=== PATIENT | male | born 1930 | race Caucasian/White ===

== ENCOUNTER 2017-01-26 12:14 | Inpatient (IN) ==
[2017-01-26] MEDS ORDERED: ONDANSETRON 4 MG/2 ML VIAL IV PRN ×2 (12:44→15:29)
[2017-01-26] MEDS ORDERED: ALBUTEROL 2.5 MG/3 ML NEB RESP TX STA (12:44)
[2017-01-26] MEDS ORDERED: MAGNESIUM SULF RIDER 2 GM in PREMIX 1 EACH IV STA (12:44)
--- NOTE | 2017-01-26 12:47 | EKG Report ---
Stationary ECG Study [facility] ER Test Date: 01/26/2017 12:24:06 PM Pat Name: JIM DUPONT Department: Room: Gender: M Quarter Inspector: Aureliano Beal : 1930 Requested by: Boaz Santoro Order Number: [id number] Reading MD: WILL GARCIA Intervals [place] Rate: 101 P: 99 MA: 206 QRS: 95 QRSD: 177 T: 86 QT: 391 QTc: 449 Interpretive Statements SINUS TACHYCARDIA INTRAVENTRICULAR CONDUCTION ABNORMALITY Electronically Signed On 01-27-17 09:27:43 CDT by WILL GARCIA [email or web address]
--- NOTE | 2017-01-26 12:48 | Emergency Department Note ---
Arrival - Arrival Chief Complaint: Shortness of Breath Stated Complaint: SOB ED Nursing Triage Note: Pt c/o SOB x 2 days. Denies CP. Mode of Arrival: Wheelchair Limitations: No Limitations Source: Patient, Significant other, RN Notes Reviewed Time Seen by Provider: 01/26/17 12:40 - History of Present Illness HPI Narrative: Patient is an 86-year-old white male who has a 2 day history of shortness of breath cough and wheezing. He denies any chest pain. There is no history of fever or chills. Patient does have a history of coronary artery disease. Dyspnea is worse with exertion and with supine positioning. Patient is followed by Dr. Arreaga and Dr. Lara. Onset (ago): day(s) (2) Consistency: constant Severity: moderate Allergies/Adverse Reactions: Allergies Allergy/AdvReac Type Severity Reaction Status Date / Time lactulose [From Chronulac] Allergy Unknown/Unable Verified 12/18/16 09:27 to obtain Home Medications: Home Medications Medication Instructions Recorded Confirmed Type Cilostazol 100 mg PO BID 11/30/15 01/26/17 History Clopidogrel [Plavix] 75 mg PO DAILY 11/30/15 01/26/17 History Digoxin Tab [Lanoxin Tab] 0.125 mg PO DAILY 11/30/15 01/26/17 History Gabapentin Cap/Tab [Neurontin 600 mg PO TID 11/30/15 01/26/17 History Cap/Tab] Levothyroxine Tab [Synthroid Tab] 100 mcg PO QAM 11/30/15 01/26/17 History Pravastatin [Pravachol] 20 mg PO BEDTIME 11/30/15 01/26/17 History Spironolactone [Aldactone] 25 mg PO DAILY #30 tablet 12/02/15 01/26/17 Rx Aspirin EC Tab 81 mg PO DAILY 12/18/16 01/26/17 History Atropine Sulfate [Atropine 1% Oph 1 drop RIGHT EYE DAILY 12/18/16 01/26/17 History Soln] Tramadol HCl [Tramadol Tab] 50 mg PO Q6H PRN 12/18/16 01/26/17 History prednisoLONE acetate [PrednisoLONE 1 drop RIGHT EYE DAILY 12/18/16 01/26/17 History Acetate 1% Oph Susp] Amiodarone Tab [Cordarone Tab] 200 mg PO DAILY #30 tablet 12/25/16 01/26/17 Rx Carvedilol [Coreg] 3.125 mg PO BID #60 tablet 12/25/16 01/26/17 Rx Furosemide Tab [Lasix Tab] 80 mg PO DAILY #30 tablet 12/25/16 01/26/17 Rx Gabapentin 300 mg PO BEDTIME PRN 01/26/17 01/26/17 History Tamsulosin [Flomax] 0.4 mg PO BEDTIME 01/26/17 01/26/17 History Review of System - Review of System 12 point system: reviewed and no additional remarkable complaints except as stated - Review of System Constitutional: Absent: chills, fever Respiratory: Present: as per HPI, cough, respiratory distress, wheezing Gastrointestinal: Absent: nausea, vomiting Medical,Surgical,& Family Hx - Medical History Cardio: History of: CHF (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 on 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 developer), CAD, Hypertension, Valvular Heart Disease Endocrine: History of: Dyslipidemia Musculoskeletal: History of: Musculoskeletal Problems (arthritis) Other: History of: Cancer (prostate ca with radiation), Miscellaneous Medical Problems - Surgical History Cardiac Surgeries: Sugical HX of: Femoral-Popliteal Bypass Graft (1999), Cardiac Catheterization, Cardiac Surgery Reproductive Surgeries: Surgical HX of;: Prostate Surgery - Family History Family History: Reports;: Family Cancer (brother- throat,), Family Diabetes (son , brother), Family Heart Disease, Family Hypertension (son), Family Stroke ( mother) - Social History Smoking Status: Never smoker Lives With:: Spouse Functional capacity: independent ambulation Exam Vital Signs: Vital Signs Temperature 96.9 F L 01/26/17 12:38 Pulse Rate 87 01/26/17 13:13 Respiratory Rate 18 01/26/17 13:13 Blood Pressure 108/69 01/26/17 12:38 O2 Sat by Pulse Oximetry 96 01/26/17 13:13 GENERAL: This is a chronically and acutely ill-appearing white male in no apparent distress. VITAL SIGNS: Reviewed HEENT: Head is atraumatic and normocephalic. Pupils are equal round react to light. Extraocular movements are intact. Oropharynx is benign with moist mucous membranes. NECK: Neck is soft and supple without tenderness. There are no masses. There is no lymphadenopathy. LUNGS: Bibasilar rales are present. Chest rises symmetrically. There is no chest wall tenderness. CV: Heart is regular rate and rhythm without murmurs rubs or gallops. ABDOMEN: Abdomen is soft, nontender to palpation. There are no abdominal abnormal masses palpated. There is no organomegaly. Bowel sounds are present and active. SKIN: Skin is warm and dry. No rash. Slightly pale. EXTREMITIES: Patient has full range of motion without tenderness. There is trace pedal edema. NEUROLOGIC: Awake alert and oriented to person and situation. Cranial nerves II through XII are grossly intact. Motor is 5 over 5 in all extremities bilaterally. Course Course Narrative: Patient was given nonrebreathing facemask while in the emergency department along with Lasix 80 mg IV. - Consultations Consultation #1: Discussed with hospitalist. Patient will be admitted to their service. Time: 13:56 Procedures - ABG Interpretation ABG Interpretation 1 Interpretation: respiratory alkalosis, other (Acute respiratory failure) Results - Labs CBC & BMP: 01/26/17 12:33 01/26/17 12:33 Lab Results: I have reviewed the patients labs Labs: Laboratory Tests 01/26/17 01/26/17 01/26/17 12:33 12:33 13:00 ABG pH 7.503 H ABG pCO2 26.2 L ABG pO2 51.1 L ABG HCO3 22.9 ABG Total CO2 18.7 L ABG O2 Saturation 86.1 L ABG Base Excess -1.5 Troponin I 0.084 H B-Natriuretic Peptide 1408 H - EKG EKG results: interpreted by ERMD - Impressions EKG: Sinus tachycardia with first-degree AV block with rate of 100, left bundle branch block, no further interpretation possible. - Diagnostic Findings Procedure: Chest x-ray: image reviewed by me (Increased pulmonary markings bilaterally, old median sternotomy) Disposition Clinical Impression: Dyspnea, Pulmonary edema Case discussed with: patient, patient's family Disposition: Still a Patient Condition: Stable Time of Disposition: 13:58
[2017-01-26] MEDS ORDERED: MAGNESIUM SULF RIDER 50 ML IV ONE (12:49)
[2017-01-26 12:51] LABS: Basophils % 0.2 % (0.0-0.8); Eosinophils % 0.1 % (0.00-10.9); Hematocrit 31.4 VOL% (42.0-52.0); Hemoglobin 10.2 GM/DL (14.0-18.0); Immature Granulocytes % 0.6 %; Immature Granulocytes Absolute 0.07 #; Lymphocytes # 0.9 10*3/uL (1.4-4.0); Lymphocytes % 8.6 % (21.2-54.2); Mean Corpuscular HGB Conc 32.5 GM/DL (32-36); Mean Corpuscular Hemoglobin 32 PG (27-34); Mean Corpuscular Volume 97.2 FL (87-102); Mean Platelet Volume 10.6 FL (9.6-12.0); Monocytes # 0.9 10*3/uL (0.11-0.8); Monocytes % 7.9 % (1.7-12.7); Neutrophils % 82.6 % (38.7-73.9); Platelet Count 218 T/CUMM (130-400); Red Blood Count 3.23 MC/CUMM (3.8-5.5); White Blood Count 10.9 T/CUMM (4-12)
--- NOTE | 2017-01-26 13:02 | XRay Report ---
Referring Physician: Boaz Sargent Exam: XR chest 1V portable Date: January 26, 2017 at 12:47 PM Reason: Shortness of breath Comparison: Chest one view portable December 24, 2016 Findings: The cardiac silhouette is again enlarged, and the patient is status post sternotomy. There are patchy opacities throughout both lungs. This could represent pulmonary edema or pneumonia. No pneumothorax is identified, but there is likely mild bilateral pleural fluid. The osseous structures appear stable. Impression: Significant increased opacification of both lungs. PROCEDURE INTERPRETED AT [facility] DEPARTMENT OF RADIOLOGY Final Report Signed by: Dr. Marylou Whitman
[2017-01-26 13:06] LABS: INR 1.8; PT Patient Result 20.1 SECS; Partial Thromboplastin Time 29.6 SECS (0-40)
[2017-01-26 13:16] LABS: ABG Base Excess -1.5 MMOL/L (-2.5-2.5); ABG HCO3 22.9 MMOL/L (20-26); ABG Oxygen Saturation 86.1 % (95-100); ABG PCO2 26.2 MM HG (35-48); ABG PH 7.503 (7.35-7.45); ABG PO2 51.1 MM HG (80-95); ABG TCO2 18.7 MMOL/L (23-27)
[2017-01-26 13:21] LABS: Albumin 2.9 G/DL (3.4-5.0); Bilirubin,Total 1.1 MG/DL (0.2-1.0); Calcium 8.2 MG/DL (8.5-10.1); Magnesium 2.3 MG/DL (1.8-2.4); Osmolality,Calculated 277.4 MOS/KG (273-304); Potassium 4.5 MMOL/L (3.5-5.1); Total Protein 6.6 G/DL (6.4-8.3)
[2017-01-26 13:22] LABS: Troponin I Only 0.084 NG/ML (0.00-0.045)
[2017-01-26] MEDS ORDERED: FUROSEMIDE 40 MG/4 ML VIAL IV STA (13:54)
[2017-01-26] MEDS ORDERED: FUROSEMIDE 100 MG/10 ML VIAL ONE (13:57)
--- NOTE | 2017-01-26 14:37 | Hospitalist History & Physical ---
Assessment and Plan - Time spent with patient Time spent with patient: Greater than 30 minutes (1) Severe aortic stenosis Status: Chronic Assessment and plan: Mr. Floyd is an 86-year-old white male with multiple medical problems including severe cardiomyopathy with severe aortic stenosis admitted by Dr. Marti with increasing shortness of breath due to heart failure. Patient will be admitted to CCU on nonrebreather, aggressively diuresed, and consult cardiology. Patient does have chronic kidney disease we will have to watch his creatinine while being diuresed. We will restart his medicines for now and start him on sliding scale insulin as well for his diabetes. This is all been discussed with Dr. Marti. Further recommendations to follow Current Visit: No (2) Ischemic cardiomyopathy Status: Chronic Current Visit: No (3) Acute on chronic systolic (congestive) heart failure Status: Acute Current Visit: No (4) Coronary artery disease Status: Chronic Current Visit: No (5) History of coronary artery bypass graft Status: Chronic Current Visit: No (6) Hyperlipidemia Status: Chronic Current Visit: No (7) Non-STEMI (non-ST elevated myocardial infarction) Status: Acute Current Visit: No (8) Hypertension Status: Chronic Current Visit: No (9) Chronic renal insufficiency, stage II (mild) Status: Chronic Current Visit: No (10) Pulmonary edema Status: Acute Current Visit: No History of Present Illness Chief complaint: SOB History of present illness: Mr. Floyd is a 86 year old male with history of severe cardiomyopathy, severe aortic stenosis, hypertension, hyperlipidemia, and diabetes presenting to the ED with 3-4 day history of increasing shortness of breath. Patient states his grandkids have been sick and he thought he was coming down with a cold. Patient states he could not catch his breath even at rest. Patient denies headache, syncope, chest pain, abdominal pain, diarrhea, constipation, or lower extremity edema. Patient had 2 recent admissions in November by cardiology with worsening severe shortness of breath with orthopnea and PND. According to Dr. Lara's records patient is reluctant to do any sort of invasive management. He does seem to respond to conservative treatment on his admissions. Patient's chest x-ray is showing bilateral pleural fluid versus bilateral pneumonia. His white count is normal and he is afebrile. His BNP is elevated at 1408, and his PO2 is low at 51. Upon exam patient is tachypneic and on nonrebreather mask, he is already received 80 mg of Lasix. After discussion with ED physician Dr. Sargent and hospitalist Dr. Marti, patient will be admitted to CCU. Home Medications Medication Instructions Recorded Confirmed Type Cilostazol 100 mg PO BID 11/30/15 01/26/17 History Clopidogrel [Plavix] 75 mg PO DAILY 11/30/15 01/26/17 History Digoxin Tab [Lanoxin Tab] 0.125 mg PO DAILY 11/30/15 01/26/17 History Gabapentin Cap/Tab [Neurontin 600 mg PO TID 11/30/15 01/26/17 History Cap/Tab] Levothyroxine Tab [Synthroid Tab] 100 mcg PO QAM 11/30/15 01/26/17 History Pravastatin [Pravachol] 20 mg PO BEDTIME 11/30/15 01/26/17 History Spironolactone [Aldactone] 25 mg PO DAILY #30 tablet 12/02/15 01/26/17 Rx Aspirin EC Tab 81 mg PO DAILY 12/18/16 01/26/17 History Atropine Sulfate [Atropine 1% Oph 1 drop RIGHT EYE DAILY 12/18/16 01/26/17 History Soln] Tramadol HCl [Tramadol Tab] 50 mg PO Q6H PRN 12/18/16 01/26/17 History prednisoLONE acetate [PrednisoLONE 1 drop RIGHT EYE DAILY 12/18/16 01/26/17 History Acetate 1% Oph Susp] Amiodarone Tab [Cordarone Tab] 200 mg PO DAILY #30 tablet 12/25/16 01/26/17 Rx Carvedilol [Coreg] 3.125 mg PO BID #60 tablet 12/25/16 01/26/17 Rx Furosemide Tab [Lasix Tab] 80 mg PO DAILY #30 tablet 12/25/16 01/26/17 Rx Gabapentin 300 mg PO BEDTIME PRN 01/26/17 01/26/17 History Tamsulosin [Flomax] 0.4 mg PO BEDTIME 01/26/17 01/26/17 History Allergies Allergy/AdvReac Type Severity Reaction Status Date / Time lactulose [From Chronulac] Allergy Unknown/Unable Verified 12/18/16 09:27 to obtain Medical,Surgical,& Family Hx - Medical History Cardio: History of: CHF (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), CAD, Hypertension, Valvular Heart Disease Endocrine: History of: Dyslipidemia Musculoskeletal: History of: Musculoskeletal Problems (arthritis) Other: History of: Cancer (prostate ca with radiation), Miscellaneous Medical Problems - Surgical History Cardiac Surgeries: Sugical HX of: Femoral-Popliteal Bypass Graft (1999), Cardiac Catheterization, Cardiac Surgery Reproductive Surgeries: Surgical HX of;: Prostate Surgery - Family History Family History: Reports;: Family Cancer (brother- throat,), Family Diabetes (son , brother), Family Heart Disease, Family Hypertension (son), Family Stroke ( mother) - Social History Smoking Status: Never smoker Frequency of Alcohol Use: None Type of Drug Use: None Marital Status: Lives With:: Spouse Functional capacity: independent ambulation Review of systems: A complete 10 system review of systems was obtained and pertinent positives and negatives per HPI Exam - Constitutional Vitals: Period Temp Pulse Resp BP Sys/Castañeda Pulse Ox Last 24 Hr 96.9 F-96.9 F 84-100 17-24 108-108/69-69 86-96 Exam: Constitutional System: Moderate distress. No tremulousness. Head: Normocephalic, atraumatic. Ears, Nose and Throat System: No evidence of Otitis or Mastoiditis. No epistaxis or discharge Eyes System: Pupils equal, round, and reactive. Extraocular muscles intact. Neck: Supple, without adenopathy, No jugular venous distention. No thyromegaly, neck mass, or prior surgery apparent. Respiratory System: Chest coarse with left greater than right to auscultation. Cardiovascular System: Heart with regular rate and rhythm. 2/6 murmur. GI System: Abdomen soft, nontender. Normo active bowel sounds present. Musculoskeletal System: limbs with mild pedal edema. Full distal pulses. Neurological System: No discernable sensory deficit. No aphasia Psychiatric System: Conversation is rational Results - Labs CBC & BMP: 01/26/17 12:33 01/26/17 12:33 Lab Results: I have reviewed the past 24 hour labs - Diagnostic Findings Procedure: Chest x-ray: report reviewed by me (Bilateral pleural effusions)
[2017-01-26] MEDS ORDERED: ACETAMINOPHEN 325 MG TABLET PO PRN (15:29)
[2017-01-26] MEDS ORDERED: MAGNESIUM SULF RIDER 2 GM in PREMIX 1 EACH IV PRN (15:29)
[2017-01-26] MEDS ORDERED: GLUCAGON 1 MG VIAL IM PRN (15:29)
[2017-01-26] MEDS ORDERED: MAGNESIUM SULF RIDER 4 GM in PREMIX 1 EACH IV PRN (15:29)
[2017-01-26] MEDS ORDERED: MORPHINE 2 MG/1 ML SYRINGE IV PRN (15:29)
[2017-01-26] MEDS ORDERED: GABAPENTIN 300 MG CAPSULE PO PRN (15:29)
[2017-01-26] MEDS ORDERED: POTASSIUM CHLORIDE RIDER 10 MEQ in PREMIX 1 EACH IV PRN (15:29)
[2017-01-26] MEDS ORDERED: DEXTROSE 50% 25 GM/50 ML VIAL IV PRN (15:29)
[2017-01-26] MEDS ORDERED: DOCUSATE SODIUM 100 MG CAPSULE PO PRN (15:29)
[2017-01-26] MEDS ORDERED: guaiFENesin/DM ER 600-30 MG TABLET PO PRN (15:29)
[2017-01-26] MEDS ORDERED: diphenhydrAMINE CAP 25 MG CAPSULE PO PRN (15:29)
[2017-01-26] MEDS ORDERED: PNEUMOCOCCAL VACCINE (13 VALENT) 0.5 ML SYRINGE IM ONE (16:13)
[2017-01-26 16:16] LABS: Apearance,Urine CLEAR (Clear); Bacteria,Urine Occasional /HPF (Few); Bilirubin,Urine Negative (Negative); Blood, Urine Small mg/dL (Negative); Glucose,Urine (UA) Negative (Negative); Ketones,Urine Negative (Negative); Nitrite,Urine Negative (Negative); Protein,Urine Negative; RBC,Urine 1 /HPF (0-4); Urine Color Straw (Yellow); Urine Specific Gravity 1.004 (1.001-1.035); Urine Urobilinogen < 2.0 EU/DL (0.2-1.0)
[2017-01-26] MEDS: INSULIN LISPRO 100 UNIT/ML SUBCUT SCH ×2 (17:08→20:11)
[2017-01-26] MEDS: prednisoLONE ACETATE 1% OPH SUSP 5 ML BOTTLE RIGHT EYE SCH (17:18)
[2017-01-26] MEDS: ATROPINE 1 % OPH SOLN 5 ML BOTTLE RIGHT EYE SCH (17:18)
[2017-01-26] MEDS: MEROPENEM 1,000 MG in SODIUM CHLORIDE 0.9% 100 ML IV SCH (17:18)
[2017-01-26] MEDS: CILOSTAZOL 100 MG TABLET PO SCH ×2 (17:19→20:09)
[2017-01-26] MEDS: DIGOXIN 0.125 MG TABLET PO SCH (17:20)
[2017-01-26] MEDS: GABAPENTIN 300 MG CAPSULE PO SCH ×2 (17:20→20:09)
[2017-01-26] MEDS: SPIRONOLACTONE 25 MG TABLET PO SCH (17:20)
[2017-01-26] MEDS: PANTOPRAZOLE 40 MG TABLET PO SCH (17:20)
[2017-01-26] MEDS: CARVEDILOL 3.125 MG TABLET PO SCH (17:20)
[2017-01-26] MEDS: CLOPIDOGREL 75 MG TABLET PO SCH (17:20)
[2017-01-26] MEDS: ASPIRIN EC 81 MG TABLET PO SCH (17:20)
[2017-01-26] MEDS: AMIODARONE 200 MG TABLET PO SCH (17:21)
[2017-01-26] MEDS: FUROSEMIDE 40 MG/4 ML VIAL IV SCH (17:21)
[2017-01-26 17:41] LABS: INR 1.7; PT Patient Result 18.8 SECS
[2017-01-26] MEDS ORDERED: VANCOMYCIN INJ 2,000 MG in SODIUM CHLORIDE 0.9% 500 ML IV ONE (18:00)
--- NOTE | 2017-01-26 19:22 | Ultrasound Report ---
US right upper quadrant Indication: CHF, elevated . Comparison: none. Technique: Multiple longitudinal and transverse real-time sonographic images of the right upper quadrant of the abdomen are obtained. Findings: The liver measures 17 cm and demonstrates normal echogenicity without focal abnormality. Hypoechoic lesion within the anterior aspect of the right lobe measures 0.55 cm and is not definitively evaluated but appears to demonstrate increased through transmission and therefore is favored to represent a cyst or hemangioma. Hepatic veins are dilated. Multiple mobile stones are noted within the gallbladder lumen. Gallbladder wall thickness is within normal limits. There is no focal pericholecystic fluid. The sonographic Bauman's sign is negative. The common duct measures 0.44 cm in diameter and there is no evidence of intrahepatic ductal dilation. Right kidney measures 10 cm craniocaudal and appears within normal limits. Small right pleural effusion is incidentally imaged. The visualized portion of the pancreas appears unremarkable. There is no ascites. IMPRESSION: Cholelithiasis with no sonographic evidence of acute cholecystitis. Ultrasound images were captured and stored. PROCEDURE INTERPRETED AT [facility] DEPARTMENT OF RADIOLOGY Final Report Signed by: Tom Barrera
[2017-01-26] MEDS ORDERED: PRAVASTATIN 20 MG TABLET PO SCH (21:00)
[2017-01-26] MEDS ORDERED: ENOXAPARIN 30 MG/0.3 ML SYRINGE SUBCUT SCH (21:00)
[2017-01-26] MEDS ORDERED: TAMSULOSIN 0.4 MG CAPSULE PO SCH (21:00)
[2017-01-27] MEDS: MEROPENEM 1,000 MG in SODIUM CHLORIDE 0.9% 100 ML IV SCH (02:13)
[2017-01-27 05:16] LABS: Basophils % 0.4 % (0.0-0.8); Eosinophils # 0.1 10*3/uL (0.0-0.87); Eosinophils % 0.7 % (0.00-10.9); Hematocrit 30.6 VOL% (42.0-52.0); Immature Granulocytes % 0.6 %; Immature Granulocytes Absolute 0.06 #; Lymphocytes # 0.9 10*3/uL (1.4-4.0); Lymphocytes % 8.4 % (21.2-54.2); Mean Corpuscular HGB Conc 32.7 GM/DL (32-36); Mean Corpuscular Hemoglobin 31 PG (27-34); Mean Corpuscular Volume 95.9 FL (87-102); Monocytes # 0.9 10*3/uL (0.11-0.8); Monocytes % 8.2 % (1.7-12.7); Neutrophils # 8.7 10*3/uL (1.4-7.4); Neutrophils % 81.7 % (38.7-73.9); Platelet Count 230 T/CUMM (130-400); Red Blood Count 3.19 MC/CUMM (3.8-5.5); Red Cell Distribution Width 15.1 % (9.3-17.3); White Blood Count 10.7 T/CUMM (4-12)
[2017-01-27 05:45] LABS: Albumin 2.5 G/DL (3.4-5.0); Bilirubin,Direct 0.3 MG/DL (0.0-0.20); Bilirubin,Total 1.3 MG/DL (0.2-1.0); Total Protein 6.1 G/DL (6.4-8.3)
[2017-01-27 05:49] LABS: Albumin 2.6 G/DL (3.4-5.0); Bilirubin,Total 1.2 MG/DL (0.2-1.0); Magnesium 2.4 MG/DL (1.8-2.4)
[2017-01-27 05:50] LABS: Osmolality,Calculated 275.2 MOS/KG (273-304); Potassium 3.9 MMOL/L (3.5-5.1)
[2017-01-27] MEDS ORDERED: LEVOTHYROXINE 100 MCG TABLET PO SCH (07:00)
--- NOTE | 2017-01-27 07:33 | EKG Report ---
Stationary ECG Study [facility] Test Date: 01/27/2017 7:28:37 AM Pat Name: JIM DUPONT Department: Room: 123 Gender: M Doll Wig Maker: : 1930 Requested by: Taylor Walls Order Number: [id number] Reading MD: CODY CANTU Intervals [place] Rate: 97 P: 61 NH: 186 QRS: 97 QRSD: 178 T: 55 QT: 407 QTc: 461 Interpretive Statements SINUS RHYTHM MODERATE RIGHT AXIS DEVIATION LEFT BUNDLE BRANCH BLOCK Electronically Signed On 01-27-17 16:20:41 CDT by CODY CANTU [email or web address]
--- NOTE | 2017-01-27 07:44 | XRay Report ---
Referring Physician: Taylor Walls Exam: XR chest 1V portable Date: January 27, 2017 at 3:16 AM Reason: Shortness of breath Comparison: Chest one view portable January 26, 2017 Findings: The cardiac silhouette is again enlarged, and the patient is status post sternotomy. There are patchy opacities throughout both lungs. This could represent pulmonary edema or pneumonia. No pneumothorax is identified, but there may be mild bilateral pleural fluid. The osseous structures appear stable. Impression: There has been no significant change. PROCEDURE INTERPRETED AT [facility] DEPARTMENT OF RADIOLOGY Final Report Signed by: Dr. Marylou Whitman
[2017-01-27] MEDS: INSULIN LISPRO 100 UNIT/ML SUBCUT SCH ×2 (08:18→11:48)
[2017-01-27] MEDS: FUROSEMIDE 40 MG/4 ML VIAL IV SCH (08:18)
[2017-01-27] MEDS: CARVEDILOL 3.125 MG TABLET PO SCH (08:18)
[2017-01-27] MEDS: ASPIRIN EC 81 MG TABLET PO SCH (08:19)
[2017-01-27] MEDS: ATROPINE 1 % OPH SOLN 5 ML BOTTLE RIGHT EYE SCH (08:19)
[2017-01-27] MEDS: SPIRONOLACTONE 25 MG TABLET PO SCH (08:19)
[2017-01-27] MEDS: AMIODARONE 200 MG TABLET PO SCH (08:19)
[2017-01-27] MEDS: CILOSTAZOL 100 MG TABLET PO SCH (08:20)
[2017-01-27] MEDS: prednisoLONE ACETATE 1% OPH SUSP 5 ML BOTTLE RIGHT EYE SCH (08:20)
[2017-01-27] MEDS: GABAPENTIN 300 MG CAPSULE PO SCH (08:20)
[2017-01-27] MEDS: PANTOPRAZOLE 40 MG TABLET PO SCH (08:20)
[2017-01-27] MEDS: CLOPIDOGREL 75 MG TABLET PO SCH (08:23)
[2017-01-27] MEDS ORDERED: FUROSEMIDE 20 MG/2 ML VIAL ONE (08:26)
[2017-01-27] MEDS ORDERED: FUROSEMIDE 40 MG/4 ML VIAL IV ONE (09:00)
--- NOTE | 2017-01-27 09:24 | Discharge Summary ---
Hospital Course - Hospital Course Hospital Course: Mr Floyd came with recurrent hypoxic resp failure due to CHF and critical Aortic stenosis. He has agreed with Dr Lara's recommendation that he be transferred to [place] to have AV repair. He is more comfortable today after diuresis overnight. He is now on 6L NC with O2 sat of 100%. He becomes short of breath with activity. On his last hospitalization he was also treated for pneumonia. I have started him on antibiotics pending culture results though clinically his picture is more consistent with heart failure. He is afebrile, rare cough, responded to diuretics. Dr Lara has discussed it with the gis mapping technician there who has accepted the transfer today. He will be discharged to that hospital today. Dr Lara and his team are talking to his family. - Time spent with patient Time with patient DS: Greater than 30 minutes (coordination of care, discussion with patient, medicine reconciliation, documentation took 34 minutes) Diagnosis - Discharge Diagnosis (1) Severe aortic stenosis Status: Chronic (2) Ischemic cardiomyopathy Status: Chronic (3) Acute on chronic systolic (congestive) heart failure Status: Acute (4) Pulmonary edema Status: Acute Specialty Discharge - Follow Up or Referrals Follow up with: Josh Lara MD [Physician] - Discharge Plan - Discharge Data Disposition: Disch/Xfer-[facility] Hos Condition at Discharge: Guarded Discharge Diet: heart healthy - Discharge Medications New Dextrose 50% [D50] 25 gm IV PRN PRN #0 vial PRN Reason: Hypoglycemia with IV access Docusate Sodium Cap [Colace Cap] 100 mg PO BID PRN #0 capsule PRN Reason: Constipation Furosemide Inj [Lasix Inj] 40 mg IV BID DIURETIC vial Glucagon 1 mg IM PRN PRN #0 vial PRN Reason: Hypoglycemia w/o IV access Insulin Lispro [HumaLOG] See Protocol SUBCUT ACHS unit Meropenem [Merrem] 1,000 mg IV Q12H vial Pantoprazole Tab [Protonix Tab] 40 mg PO DAILY tablet Vancomycin Inj 1,250 mg IV Q24H vial guaiFENesin/DM ER 600-30 [Mucinex Dm 600-30 MG] 1 tablet PO BID PRN #0 tablet PRN Reason: Congestion Enoxaparin [Lovenox] 30 mg SUBCUT Q24H syringe Ondansetron Inj [Zofran Inj] 4 mg IV Q4H PRN #0 vial PRN Reason: Nausea Continue Clopidogrel [Plavix] 75 mg PO DAILY Cilostazol 100 mg PO BID Gabapentin Cap/Tab [Neurontin Cap/Tab] 600 mg PO TID Digoxin Tab [Lanoxin Tab] 0.125 mg PO DAILY Levothyroxine Tab [Synthroid Tab] 100 mcg PO QAM Pravastatin [Pravachol] 20 mg PO BEDTIME Spironolactone [Aldactone] 25 mg PO DAILY #30 tablet Aspirin EC Tab 81 mg PO DAILY Carvedilol [Coreg] 3.125 mg PO BID #60 tablet Tamsulosin [Flomax] 0.4 mg PO BEDTIME Gabapentin 300 mg PO BEDTIME PRN PRN Reason: Pain Tramadol HCl [Tramadol Tab] 50 mg PO Q6H PRN PRN Reason: Pain Atropine Sulfate [Atropine 1% Oph Soln] 1 drop RIGHT EYE DAILY prednisoLONE acetate [PrednisoLONE Acetate 1% Oph Susp] 1 drop RIGHT EYE DAILY Amiodarone Tab [Cordarone Tab] 200 mg PO DAILY #30 tablet Discontinued Furosemide Tab [Lasix Tab] 80 mg PO DAILY #30 tablet - Follow Up or Referral - Forms/Instructions Exam - Constitutional Vitals: Period Temp Pulse Resp BP Sys/Castañeda Pulse Ox Last 24 Hr 97.4 F-98.6 F 88-103 18-29 85-139/49-74 92-100 General appearance: normal weight, mild distress (comfortable at rest on 6L NC, but short of breath with exertion ) - Head Head exam: Present: normocephalic, atraumatic - Eye Eye exam: Present: EOMI. Absent: scleral icterus Pupils: Present: PATTI - Respiratory Respiratory exam: Present: rales, rhonchi - Cardiovascular Cardiovascular exam: Present: regular rate and rhythm - GI/Abdominal GI/Abdominal exam: Present: normal bowel sounds, soft. Absent: tenderness - Extremities Exam Extremities exam: Absent: edema - Neurological Exam Neurological exam: Present: alert, oriented X3 Discharge Results Procedures and tests throughout hospitalization: Pending Orders 01/26/17 16:00 MRSA Surveillence, Inf Control Routine Labs on day of discharge: Labs from last 24 hours 01/27/17 01/27/17 01/27/17 04:12 04:12 04:12 WBC RBC Hgb Hct MCV MCH MCHC RDW Plt Count MPV Neut % (Auto) Lymph % (Auto) [place] % (Auto) Eos % (Auto) Baso % (Auto) Neut # (Auto) Lymph # (Auto) [place] # (Auto) Eos # (Auto) Baso # (Auto) Immature Gran % Nucleated RBC % Immature Gran # Nucleated RBCs # INR PT Patient/Control Mix Sodium Potassium Chloride Carbon Dioxide Anion Gap BUN Creatinine GFR Calculation BUN/Creatinine Ratio Glucose POC Glucose Calculated Osmolality Calcium Magnesium Total Bilirubin 1.30 H Direct Bilirubin 0.30 H Indirect Bilirubin 1.0 AST 63 H ALT 71 H Alkaline Phosphatase 53 Troponin I 0.112 H B-Natriuretic Peptide 1557 H Total Protein 6.1 L Albumin 2.5 L Globulin Albumin/Globulin Ratio Urine Color Urine Appearance Urine pH Ur Specific [place] Urine Protein Urine Glucose (UA) Urine Ketones Urine Blood Urine Nitrate Urine Bilirubin Urine Urobilinogen Urine Leukocytes Urine RBC Urine Bacteria Ur Culture Indicated? 01/27/17 01/27/17 01/26/17 04:12 04:12 23:50 WBC 10.7 RBC 3.19 L Hgb 10.0 L Hct 30.6 L MCV 95.9 MCH 31 MCHC 32.7 RDW 15.1 Plt Count 230 MPV 11.0 Neut % (Auto) 81.7 H Lymph % (Auto) 8.4 L [place] % (Auto) 8.2 Eos % (Auto) 0.7 Baso % (Auto) 0.4 Neut # (Auto) 8.7 H Lymph # (Auto) 0.9 L [place] # (Auto) 0.9 H Eos # (Auto) 0.1 Baso # (Auto) 0.0 Immature Gran % 0.6 Nucleated RBC % 0.0 Immature Gran # 0.06 Nucleated RBCs # 0.00 INR PT Patient/Control Mix Sodium 134 L Potassium 3.9 Chloride 99 Carbon Dioxide 24 Anion Gap 14.9 BUN 28 H Creatinine 1.40 H GFR Calculation 53 BUN/Creatinine Ratio 20.00 Glucose 133 H POC Glucose Calculated Osmolality 275.2 Calcium 8.0 L Magnesium 2.4 Total Bilirubin 1.20 H Direct Bilirubin Indirect Bilirubin AST 63 H ALT 73 H Alkaline Phosphatase 52 Troponin I 0.108 H B-Natriuretic Peptide Total Protein 6.0 L Albumin 2.6 L Globulin 3.4 Albumin/Globulin Ratio 0.7 L Urine Color Urine Appearance Urine pH Ur Specific [place] Urine Protein Urine Glucose (UA) Urine Ketones Urine Blood Urine Nitrate Urine Bilirubin Urine Urobilinogen Urine Leukocytes Urine RBC Urine Bacteria Ur Culture Indicated? 01/26/17 01/26/17 01/26/17 19:17 16:51 16:26 WBC RBC Hgb Hct MCV MCH MCHC RDW Plt Count MPV Neut % (Auto) Lymph % (Auto) [place] % (Auto) Eos % (Auto) Baso % (Auto) Neut # (Auto) Lymph # (Auto) [place] # (Auto) Eos # (Auto) Baso # (Auto) Immature Gran % Nucleated RBC % Immature Gran # Nucleated RBCs # INR 1.7 PT Patient/Control Mix 18.8 Sodium Potassium Chloride Carbon Dioxide Anion Gap BUN Creatinine GFR Calculation BUN/Creatinine Ratio Glucose POC Glucose 192 H 149 H Calculated Osmolality Calcium Magnesium Total Bilirubin Direct Bilirubin Indirect Bilirubin AST ALT Alkaline Phosphatase Troponin I B-Natriuretic Peptide Total Protein Albumin Globulin Albumin/Globulin Ratio Urine Color Urine Appearance Urine pH Ur Specific [place] Urine Protein Urine Glucose (UA) Urine Ketones Urine Blood Urine Nitrate Urine Bilirubin Urine Urobilinogen Urine Leukocytes Urine RBC Urine Bacteria Ur Culture Indicated? 01/26/17 01/26/17 16:16 16:00 WBC RBC Hgb Hct MCV MCH MCHC RDW Plt Count MPV Neut % (Auto) Lymph % (Auto) [place] % (Auto) Eos % (Auto) Baso % (Auto) Neut # (Auto) Lymph # (Auto) [place] # (Auto) Eos # (Auto) Baso # (Auto) Immature Gran % Nucleated RBC % Immature Gran # Nucleated RBCs # INR PT Patient/Control Mix Sodium Potassium Chloride Carbon Dioxide Anion Gap BUN Creatinine GFR Calculation BUN/Creatinine Ratio Glucose POC Glucose Calculated Osmolality Calcium Magnesium Total Bilirubin Direct Bilirubin Indirect Bilirubin AST ALT Alkaline Phosphatase Troponin I 0.105 H D B-Natriuretic Peptide Total Protein Albumin Globulin Albumin/Globulin Ratio Urine Color Straw Urine Appearance Clear Urine pH 6.0 Ur Specific [place] 1.004 Urine Protein Negative Urine Glucose (UA) Negative Urine Ketones Negative Urine Blood Small Urine Nitrate Negative Urine Bilirubin Negative Urine Urobilinogen < 2.0 H Urine Leukocytes Negative Urine RBC 1 Urine Bacteria Occasional Ur Culture Indicated? Not indicated DS: Provider Date of admission: 01/26/17 14:34 Primary care physician: . No PCP Attending physician on admission: Linda Marti MD Consults: 01/26/17 15:29 Consult to Physician [CONS] Routine Comment: pt of dr lara, in w sob Consulting Provider: Cardiology - [facility] When should Consulting Provider be notified: Now Consult Notification Comment: notified Dr Lara of consult 01/26/17 @ 1730 01/26/17 15:38 Consult to Pharmacy [CONS] Routine Reason for Pharmacy Consult: Adjust Meds Renal Funct 01/26/17 16:03 Consult to Pastoral Services [CONS] Routine Comment: Pastoral Screen: Request Flavor Tank Tender Visit Pastoral Screen Source of Request: Patient Family 01/26/17 16:06 Consult to Pharmacy [CONS] Routine Reason for Pharmacy Consult: Dose/Manage Antibiotics Dose/Manage Vancomycin Comment: please adjust antibiotic doses for renal disease Discharging clinician: Linda Marti MD
--- NOTE | 2017-01-27 10:22 | Cardiology Consult Note ---
Assessment and Plan - Time spent with patient Time spent with patient: Greater than 30 minutes (1) Severe aortic stenosis Status: Chronic Assessment and plan: See plan of care listed above (2) Ischemic cardiomyopathy Status: Chronic Assessment and plan: See plan of care listed above (3) Acute on chronic systolic (congestive) heart failure Status: Acute Assessment and plan: See plan of care listed above (4) Coronary artery disease Status: Chronic Assessment and plan: See plan of care listed above (5) History of coronary artery bypass graft Status: Chronic Assessment and plan: See plan of care listed above (6) Hyperlipidemia Status: Chronic Assessment and plan: See plan of care listed above (7) Hypertension Status: Chronic Assessment and plan: See plan of care listed above (8) Chronic renal insufficiency, stage II (mild) Status: Chronic Assessment and plan: See plan of care listed above (9) Paroxysmal atrial fibrillation Status: Chronic Assessment and plan: See plan of care listed above History of Present Illness - Data of Consult Patient: known to practice within the last 3 years Consult date: 01/27/17 Requesting Physician: Linda Marti - Consult Narrative Reason for consult: acute on chronic CHF, severe 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 Floyd, 86-year-old male, has risk factors significant for: Advanced age, known coronary artery disease (status post CABG) hypertension, dyslipidemia, sedentary lifestyle. He was last seen in cardiology clinic January 02, 2017. He has a history of known severe aortic stenosis, ischemic cardiomyopathy (EF 20%), atrial fibrillation. He was hospitalized in November with pneumonia, NSTEMI and severe heart failure. He also had transient atrial fibrillation. Last heart catheterization June 11, 2012 reveals the following: #1 severe [place] three-vessel coronary artery disease #2 all 3 the patient's bypass grafts are widely patent #3 severe ischemic cardiomyopathy with wide complex QRS #4 moderate aortic stenosis. Last echocardiogram December 18, 2016 reveals the following: EF 15%, severe global hypokinesis, critical aortic stenosis with moderate aortic insufficiency (mean gradient 25 mmHg, aortic valve area 0.81 cm. Maximum velocity across the valve with his poor EF is 3.28M/S with a VTI 59.7 peak instantaneous gradient of 43 and a mean of 25. RVSP 57 mmHg plus the right atrial pressure. Moderate mitral regurgitation. Patient presented to the emergency department at [facility] January 26, 2017 with increasing shortness of breath due to acute on chronic congestive heart failure ([place] Heart Association classification IV), EF 15- 20%. He was housed in our critical care unit. This morning, patient tells me he is breathing better. He denies chest pain, heaviness or tightness. In the past, on numerous occasions, he has been counseled regarding possible biventricular internal cardiac defibrillator and/or aortic valve replacement, ideally through a percutaneous route. He has declined on numerous occasions. Today, however, he is agreeable to "do whatever needs to be done" at this point. Dr. Josh Lara contacted DrJayna quintana at [facility] in [place], [place]. He is agreeable to accept patient in transfer for possible T AVR. Eventually, patient may require ICD. Dr. Linda Gibson has admitted this patient and she is working on paperwork now to facilitate this transfer today. CC: Linda Marti MD - Home Medications and Allergies Home Medications: Home Medications Medication Instructions Recorded Confirmed Type Cilostazol 100 mg PO BID 11/30/15 01/26/17 History Clopidogrel [Plavix] 75 mg PO DAILY 11/30/15 01/26/17 History Digoxin Tab [Lanoxin Tab] 0.125 mg PO DAILY 11/30/15 01/26/17 History Gabapentin Cap/Tab [Neurontin 600 mg PO TID 11/30/15 01/26/17 History Cap/Tab] Levothyroxine Tab [Synthroid Tab] 100 mcg PO QAM 11/30/15 01/26/17 History Pravastatin [Pravachol] 20 mg PO BEDTIME 11/30/15 01/26/17 History Spironolactone [Aldactone] 25 mg PO DAILY #30 tablet 12/02/15 01/26/17 Rx Aspirin EC Tab 81 mg PO DAILY 12/18/16 01/26/17 History Atropine Sulfate [Atropine 1% Oph 1 drop RIGHT EYE DAILY 12/18/16 01/26/17 History Soln] Tramadol HCl [Tramadol Tab] 50 mg PO Q6H PRN 12/18/16 01/26/17 History prednisoLONE acetate [PrednisoLONE 1 drop RIGHT EYE DAILY 12/18/16 01/26/17 History Acetate 1% Oph Susp] Amiodarone Tab [Cordarone Tab] 200 mg PO DAILY #30 tablet 12/25/16 01/26/17 Rx Carvedilol [Coreg] 3.125 mg PO BID #60 tablet 12/25/16 01/26/17 Rx Gabapentin 300 mg PO BEDTIME PRN 01/26/17 01/26/17 History Tamsulosin [Flomax] 0.4 mg PO BEDTIME 01/26/17 01/26/17 History Dextrose 50% [D50] 25 gm IV PRN PRN #0 vial 01/27/17 Rx Docusate Sodium Cap [Colace Cap] 100 mg PO BID PRN #0 capsule 01/27/17 Rx Enoxaparin [Lovenox] 30 mg SUBCUT Q24H syringe 01/27/17 Rx Furosemide Inj [Lasix Inj] 40 mg IV BID DIURETIC vial 01/27/17 Rx Glucagon 1 mg IM PRN PRN #0 vial 01/27/17 Rx Insulin Lispro [HumaLOG] See Protocol SUBCUT ACHS unit 01/27/17 Rx Meropenem [Merrem] 1,000 mg IV Q12H vial 01/27/17 Rx Ondansetron Inj [Zofran Inj] 4 mg IV Q4H PRN #0 vial 01/27/17 Rx Pantoprazole Tab [Protonix Tab] 40 mg PO DAILY tablet 01/27/17 Rx Vancomycin Inj 1,250 mg IV Q24H vial 01/27/17 Rx guaiFENesin/DM ER 600-30 [Mucinex 1 tablet PO BID PRN #0 tablet 01/27/17 Rx Dm 600-30 MG] Allergies/Adverse Reactions: Allergies Allergy/AdvReac Type Severity Reaction Status Date / Time lactulose [From Chronulac] Allergy Unknown/Unable Verified 12/18/16 09:27 to obtain Review of systems: REVIEW OF SYSTEMS: - Constitutional Constitutional: Present: Fatigue. Absent: syncope, anorexia, night sweats - EENT Eyes: Absent: blurry vision, loss of vision, diplopia Ears: Absent: ear pain, ear discharge. Present: Decreased hearing - Cardiovascular Cardiovascular: Denies chest pain with exertion, palpitations. Absent: chest pain with deep breath, claudication, - Respiratory Respiratory: Present: HUYNH, dyspnea at rest cough. Orthopnea. PND. Tachypnea. Wheezing. Absent: wheezing, change in phlegm color - Gastrointestinal Gastrointestinal: Absent: abdominal pain, hematemesis, hematochezia, melena, change in bowel habits, nausea - Genitourinary Genitourinary: Absent: difficulty urinating, dysuria, urinary hesitancy, flank pain - Musculoskeletal Musculoskeletal: Present: back pain Absent: joint swelling, muscle cramps, muscle weakness - Neurological Neurological: Present: normal gait without frequent falls. Absent: dizziness, hemiparesis - Psychiatric Psychiatric: Present: Anxiety. Denies depression, difficulty concentrating - Endocrine Endocrine: Absent: cold intolerance, heat intolerance, polyuria, polyphagia, polydipsia - Hematologic/Lymphatic Hematologic/Lymphatic: Present: easy bruising. 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), CAD, Hypertension, Valvular Heart Disease Endocrine: History of: Dyslipidemia Genitourinary: History of: Prostate Problems (cancer) Musculoskeletal: History of: Musculoskeletal Problems (arthritis) Other: History of: Cancer (prostate ca with radiation), Miscellaneous Medical Problems - Surgical History Cardiac Surgeries: Sugical HX of: Femoral-Popliteal Bypass Graft (1999), Cardiac Catheterization, Cardiac Surgery HEENT Surgeries: Surgical HX of: Tonsilectomy & Adenoidectomy (tonsilectomy) Abdominal Surgeries: Surgical HX of: Colonoscopy Reproductive Surgeries: Surgical HX of;: Prostate Surgery - Family History Family History: Reports;: Family Cancer (brother- throat,), Family Diabetes (son , brother), Family Heart Disease, Family Hypertension (son), Family Stroke ( mother) - Social History Smoking Status: Never smoker Have you smoked in the last 12 months: No Frequency of Alcohol Use: None Type of Drug Use: None Marital Status: Single (Long-time girlfriend) Physical Examination Vital Signs Temp Pulse Resp BP Pulse Ox 96.9 F L 100 H 24 108/69 88 L 01/26/17 12:25 01/26/17 12:25 01/26/17 12:25 01/26/17 12:25 01/26/17 12:25 General: [Tachypneic, orthopneic. Pleasant and cooperative. ] HEENT: [PERRL, bilateral arcus noted, normocephalic, atraumatic. Mucous membranes moist. No jaundice noted. Conjunctiva moist and clear, sclerae anicteric] Neck: JVD 4-6 cm to jaw. No thyromegaly or lymphadenopathy noted. Cardiac: [Tachycardia rate, IV/ systolic ejection murmur heard best at bilateral upper sternal borders, II/ holosystolic murmur heard best at fifth intercostal space to the left. Lungs: [Crackles noted bilaterally midway at both lung fabian. End expiratory wheezing noted. Requiring oxygen. Tachypneic. Abdomen: Soft, bowel sounds normoactive. Nontender and nondistended. No abdominal bruit or thrill noted. No masses noted. Musculoskeletal: No fluid collection. Decreased range of motion is noted. Extremities: No clubbing, cyanosis noted. [Trace bilateral lower extremity edema. ] Upper extremity pulses 2+. Lower extremity pulses 2+. Capillary refill less than 3 seconds. Skin: No unusual lesions or rashes. No skin breakdown appreciated. Neuro: Awake, alert and oriented 3. Moves all extremities well without hemiparesis or paralysis. No essential tremor is appreciated. Result/EKG - Labs CBC & BMP: 01/27/17 04:12 01/27/17 04:12 Lab Results: I have reviewed the past 24 hour labs Labs: Laboratory Results - last 24 hr 01/26/17 01/26/17 01/26/17 16:00 16:16 16:26 WBC RBC Hgb Hct MCV MCH MCHC RDW Plt Count MPV Neut % (Auto) Lymph % (Auto) [place] % (Auto) Eos % (Auto) Baso % (Auto) Neut # (Auto) Lymph # (Auto) [place] # (Auto) Eos # (Auto) Baso # (Auto) Immature Gran % Nucleated RBC % Immature Gran # Nucleated RBCs # INR 1.7 PT Patient/Control Mix 18.8 Sodium Potassium Chloride Carbon Dioxide Anion Gap BUN Creatinine GFR Calculation BUN/Creatinine Ratio Glucose POC Glucose Calculated Osmolality Calcium Magnesium Total Bilirubin Direct Bilirubin Indirect Bilirubin AST ALT Alkaline Phosphatase Troponin I 0.105 H D B-Natriuretic Peptide Total Protein Albumin Globulin Albumin/Globulin Ratio Urine Color Straw Urine Appearance Clear Urine pH 6.0 Ur Specific [place] 1.004 Urine Protein Negative Urine Glucose (UA) Negative Urine Ketones Negative Urine Blood Small Urine Nitrate Negative Urine Bilirubin Negative Urine Urobilinogen < 2.0 H Urine Leukocytes Negative Urine RBC 1 Urine Bacteria Occasional Ur Culture Indicated? Not indicated 01/26/17 01/26/17 01/26/17 16:51 19:17 23:50 WBC RBC Hgb Hct MCV MCH MCHC RDW Plt Count MPV Neut % (Auto) Lymph % (Auto) [place] % (Auto) Eos % (Auto) Baso % (Auto) Neut # (Auto) Lymph # (Auto) [place] # (Auto) Eos # (Auto) Baso # (Auto) Immature Gran % Nucleated RBC % Immature Gran # Nucleated RBCs # INR PT Patient/Control Mix Sodium Potassium Chloride Carbon Dioxide Anion Gap BUN Creatinine GFR Calculation BUN/Creatinine Ratio Glucose POC Glucose 149 H 192 H Calculated Osmolality Calcium Magnesium Total Bilirubin Direct Bilirubin Indirect Bilirubin AST ALT Alkaline Phosphatase Troponin I 0.108 H B-Natriuretic Peptide Total Protein Albumin Globulin Albumin/Globulin Ratio Urine Color Urine Appearance Urine pH Ur Specific [place] Urine Protein Urine Glucose (UA) Urine Ketones Urine Blood Urine Nitrate Urine Bilirubin Urine Urobilinogen Urine Leukocytes Urine RBC Urine Bacteria Ur Culture Indicated? 01/27/17 01/27/17 01/27/17 04:12 04:12 04:12 WBC 10.7 RBC 3.19 L Hgb 10.0 L Hct 30.6 L MCV 95.9 MCH 31 MCHC 32.7 RDW 15.1 Plt Count 230 MPV 11.0 Neut % (Auto) 81.7 H Lymph % (Auto) 8.4 L [place] % (Auto) 8.2 Eos % (Auto) 0.7 Baso % (Auto) 0.4 Neut # (Auto) 8.7 H Lymph # (Auto) 0.9 L [place] # (Auto) 0.9 H Eos # (Auto) 0.1 Baso # (Auto) 0.0 Immature Gran % 0.6 Nucleated RBC % 0.0 Immature Gran # 0.06 Nucleated RBCs # 0.00 INR PT Patient/Control Mix Sodium 134 L Potassium 3.9 Chloride 99 Carbon Dioxide 24 Anion Gap 14.9 BUN 28 H Creatinine 1.40 H GFR Calculation 53 BUN/Creatinine Ratio 20.00 Glucose 133 H POC Glucose Calculated Osmolality 275.2 Calcium 8.0 L Magnesium 2.4 Total Bilirubin 1.20 H Direct Bilirubin Indirect Bilirubin AST 63 H ALT 73 H Alkaline Phosphatase 52 Troponin I B-Natriuretic Peptide 1557 H Total Protein 6.0 L Albumin 2.6 L Globulin 3.4 Albumin/Globulin Ratio 0.7 L Urine Color Urine Appearance Urine pH Ur Specific [place] Urine Protein Urine Glucose (UA) Urine Ketones Urine Blood Urine Nitrate Urine Bilirubin Urine Urobilinogen Urine Leukocytes Urine RBC Urine Bacteria Ur Culture Indicated? 01/27/17 01/27/17 04:12 04:12 WBC RBC Hgb Hct MCV MCH MCHC RDW Plt Count MPV Neut % (Auto) Lymph % (Auto) [place] % (Auto) Eos % (Auto) Baso % (Auto) Neut # (Auto) Lymph # (Auto) [place] # (Auto) Eos # (Auto) Baso # (Auto) Immature Gran % Nucleated RBC % Immature Gran # Nucleated RBCs # INR PT Patient/Control Mix Sodium Potassium Chloride Carbon Dioxide Anion Gap BUN Creatinine GFR Calculation BUN/Creatinine Ratio Glucose POC Glucose Calculated Osmolality Calcium Magnesium Total Bilirubin 1.30 H Direct Bilirubin 0.30 H Indirect Bilirubin 1.0 AST 63 H ALT 71 H Alkaline Phosphatase 53 Troponin I 0.112 H B-Natriuretic Peptide Total Protein 6.1 L Albumin 2.5 L Globulin Albumin/Globulin Ratio Urine Color Urine Appearance Urine pH Ur Specific [place] Urine Protein Urine Glucose (UA) Urine Ketones Urine Blood Urine Nitrate Urine Bilirubin Urine Urobilinogen Urine Leukocytes Urine RBC Urine Bacteria Ur Culture Indicated? - Diagnostic Findings Procedure: Chest x-ray: report reviewed by me - EKG EKG results: interpreted by me EKG shows: sinus rhythm Specialty Discharge - Follow Up or Referrals Follow up with: Josh Lara MD [Physician] -
[2017-01-27] MEDS: DIGOXIN 0.125 MG TABLET PO SCH (12:27)
[2017-01-27 13:17] VITALS: BP 102/53
[2017-01-27] MEDS ORDERED: VANCOMYCIN INJ 1,250 MG in SODIUM CHLORIDE 0.9% 250 ML IV SCH (17:00)
== END 2017-01-27 14:00 | disposition hospice, home (50) | DRG 189 ==
LOC: N.ED 12:14 → N.EDINP 14:34 → N.CC 15:25
PROVIDERS: ADMIT Internal Medicine; ATTEND Internal Medicine

== ENCOUNTER 2020-01-28 12:32 | Inpatient (IN) ==
[2020-01-28] MEDS ORDERED: ONDANSETRON 4 MG/2 ML VIAL IV PRN (15:32)
[2020-01-28] MEDS ORDERED: DEXTROSE 50% 25 GM/50 ML VIAL IV PRN (15:32)
[2020-01-28] MEDS ORDERED: GLUCAGON 1 MG VIAL IM PRN (15:32)
[2020-01-28] MEDS: INSULIN REGULAR 100 UNIT/ML SUBCUT SCH ×2 (16:30→21:07)
[2020-01-28] MEDS: LACTATED RINGERS 1,000 ML IV SCH (18:01)
[2020-01-28] MEDS: carvediloL 3.125 MG TABLET PO SCH (21:06)
[2020-01-28] MEDS: GABAPENTIN 300 MG CAPSULE PO SCH (21:06)
[2020-01-28] MEDS: TAMSULOSIN 0.4 MG CAPSULE PO SCH (21:07)
[2020-01-28] MEDS: SIMVASTATIN 10 MG TABLET PO SCH (21:07)
[2020-01-29] MEDS ORDERED: ceFAZolin 1,000 MG in SYRINGE 1 EACH IV ONE (06:00)
[2020-01-29] MEDS: LACTATED RINGERS 1,000 ML IV SCH ×2 (06:00→19:17)
[2020-01-29 07:09] LABS: Basophils % 0.4 % (0.0-0.8); Eosinophils # 0.2 10*3/uL (0.0-0.87); Eosinophils % 2.6 % (0.00-10.9); Hematocrit 35.7 VOL% (42.0-52.0); Immature Granulocytes % 0.4 %; Immature Granulocytes Absolute 0.03 #; Lymphocytes # 2.1 10*3/uL (1.4-4.0); Lymphocytes % 27.8 % (21.2-54.2); Mean Corpuscular HGB Conc 33.6 GM/DL (32-36); Mean Corpuscular Volume 96.2 FL (87-102); Mean Platelet Volume 10.9 FL (9.6-12.0); Monocytes % 11.3 % (1.7-12.7); Neutrophils % 57.5 % (38.7-73.9); Red Blood Count 3.71 MC/CUMM (3.8-5.5); White Blood Count 7.7 T/CUMM (4-12)
[2020-01-29 07:16] LABS: Platelet Count 111 T/CUMM (130-400)
[2020-01-29 07:42] LABS: Calcium 8.7 MG/DL (8.5-10.1); Osmolality,Calculated 275.4 MOS/KG (273-304)
[2020-01-29] MEDS: INSULIN REGULAR 100 UNIT/ML SUBCUT SCH ×4 (11:02→21:25)
[2020-01-29] MEDS: carvediloL 3.125 MG TABLET PO SCH ×2 (11:06→21:25)
[2020-01-29] MEDS ORDERED: DEXAMETHASONE 4 MG/1 ML VIAL ONE (11:30)
[2020-01-29] MEDS ORDERED: HEPARIN/NACL 0.9% 2 UNITS/ML 500 ML IV ONE (12:08)
[2020-01-29] MEDS ORDERED: EPINEPHrine 1 MG/ML VIAL ONE (12:08)
[2020-01-29] MEDS ORDERED: CALCIUM CHLORIDE 1,000 MG/10 ML VIAL IV ONE (12:08)
[2020-01-29] MEDS ORDERED: MORPHINE 4 MG/1 ML VIAL IV PRN ×2 (12:32)
[2020-01-29] MEDS ORDERED: ceFAZolin 1,000 MG VIAL ONE (13:03)
[2020-01-29] MEDS ORDERED: BACITRACIN OINT 0.9 GM PACK TOP ONE (13:09)
[2020-01-29] MEDS ORDERED: SEVOFLURANE 1 UNIT/15 MINUTE INH ONE (13:58)
[2020-01-29] MEDS ORDERED: PHENYLEPHRINE 1 MG/10 ML SYRINGE IV ONE (13:59)
[2020-01-29] MEDS ORDERED: ETOMIDATE 40 MG/20 ML VIAL IV ONE (13:59)
[2020-01-29] MEDS: GABAPENTIN 300 MG CAPSULE PO SCH ×3 (16:24→21:25)
[2020-01-29] MEDS: cilostazoL 100 MG TABLET PO SCH ×2 (17:04→21:25)
[2020-01-29] MEDS: ceFAZolin 1,000 MG in SYRINGE 1 EACH IV SCH (17:35)
[2020-01-29] MEDS: SPIRONOLACTONE 25 MG TABLET PO SCH (17:35)
[2020-01-29] MEDS: PANTOPRAZOLE 40 MG TABLET PO SCH (17:35)
[2020-01-29] MEDS: DIGOXIN 0.125 MG TABLET PO SCH (17:36)
[2020-01-29] MEDS: LEVOTHYROXINE 100 MCG TABLET PO SCH (17:36)
[2020-01-29] MEDS: AMIODARONE 200 MG TABLET PO SCH (17:36)
[2020-01-29] MEDS: ATROPINE 1 % OPH SOLN 5 ML BOTTLE RIGHT EYE SCH (17:47)
[2020-01-29] MEDS: prednisoLONE ACETATE 1% OPH SUSP 5 ML BOTTLE RIGHT EYE SCH (17:47)
[2020-01-29] MEDS: DOCUSATE SODIUM 100 MG CAPSULE PO SCH (21:25)
[2020-01-29] MEDS: TAMSULOSIN 0.4 MG CAPSULE PO SCH (21:25)
[2020-01-29] MEDS: SIMVASTATIN 10 MG TABLET PO SCH (21:26)
[2020-01-30] MEDS: ceFAZolin 1,000 MG in SYRINGE 1 EACH IV SCH (02:24)
[2020-01-30] MEDS ORDERED: ceFAZolin 1,000 MG in SYRINGE 1 EACH IV SCH (02:30)
[2020-01-30] MEDS: LACTATED RINGERS 1,000 ML IV SCH (05:41)
[2020-01-30] MEDS: INSULIN REGULAR 100 UNIT/ML SUBCUT SCH ×4 (08:56→22:17)
[2020-01-30] MEDS: cilostazoL 100 MG TABLET PO SCH ×2 (08:58→22:12)
[2020-01-30] MEDS: GABAPENTIN 300 MG CAPSULE PO SCH ×3 (08:58→22:23)
[2020-01-30] MEDS: CLOPIDOGREL 75 MG TABLET PO SCH (08:58)
[2020-01-30] MEDS: LEVOTHYROXINE 100 MCG TABLET PO SCH (08:58)
[2020-01-30] MEDS: DOCUSATE SODIUM 100 MG CAPSULE PO SCH ×2 (08:58→22:12)
[2020-01-30] MEDS: ASPIRIN EC 81 MG TABLET PO SCH (08:58)
[2020-01-30] MEDS: DIGOXIN 0.125 MG TABLET PO SCH (08:58)
[2020-01-30] MEDS: AMIODARONE 200 MG TABLET PO SCH (08:58)
[2020-01-30] MEDS: SPIRONOLACTONE 25 MG TABLET PO SCH (08:59)
[2020-01-30] MEDS: carvediloL 3.125 MG TABLET PO SCH ×2 (08:59→22:12)
[2020-01-30] MEDS: PANTOPRAZOLE 40 MG TABLET PO SCH (08:59)
[2020-01-30] MEDS: prednisoLONE ACETATE 1% OPH SUSP 5 ML BOTTLE RIGHT EYE SCH (08:59)
[2020-01-30] MEDS: ATROPINE 1 % OPH SOLN 5 ML BOTTLE RIGHT EYE SCH (08:59)
[2020-01-30 10:46] LABS: Basophils % 0.3 % (0.0-0.8); Eosinophils # 0.2 10*3/uL (0.0-0.87); Eosinophils % 1.5 % (0.00-10.9); Hematocrit 33.5 VOL% (42.0-52.0); Hemoglobin 11.1 GM/DL (14.0-18.0); Immature Granulocytes % 0.6 %; Immature Granulocytes Absolute 0.06 #; Lymphocytes # 1.5 10*3/uL (1.4-4.0); Lymphocytes % 15.4 % (21.2-54.2); Mean Corpuscular HGB Conc 33.1 GM/DL (32-36); Mean Corpuscular Volume 98.5 FL (87-102); Mean Platelet Volume 11.2 FL (9.6-12.0); Monocytes % 10.4 % (1.7-12.7); Neutrophils % 71.8 % (38.7-73.9); Platelet Count 108 T/CUMM (130-400); Red Cell Distribution Width 12.2 % (9.3-17.3)
[2020-01-30 11:03] LABS: Calcium 7.9 MG/DL (8.5-10.1); Osmolality,Calculated 276.2 MOS/KG (273-304)
[2020-01-30] MEDS: SIMVASTATIN 10 MG TABLET PO SCH (22:12)
[2020-01-30] MEDS: GABAPENTIN 300 MG CAPSULE PO PRN ×2 (22:15→22:16)
[2020-01-30] MEDS: TAMSULOSIN 0.4 MG CAPSULE PO SCH (22:15)
[2020-01-31 07:04] LABS: Basophils % 0.1 % (0.0-0.8); Eosinophils # 0.2 10*3/uL (0.0-0.87); Eosinophils % 2.1 % (0.00-10.9); Hematocrit 30.2 VOL% (42.0-52.0); Hemoglobin 10.5 GM/DL (14.0-18.0); Immature Granulocytes % 0.6 %; Immature Granulocytes Absolute 0.05 #; Lymphocytes # 1.5 10*3/uL (1.4-4.0); Lymphocytes % 16.4 % (21.2-54.2); Mean Corpuscular HGB Conc 34.8 GM/DL (32-36); Mean Corpuscular Volume 94.1 FL (87-102); Mean Platelet Volume 11.5 FL (9.6-12.0); Monocytes % 10.7 % (1.7-12.7); Neutrophils % 70.1 % (38.7-73.9); Platelet Count 112 T/CUMM (130-400); Red Blood Count 3.21 MC/CUMM (3.8-5.5); Red Cell Distribution Width 12.1 % (9.3-17.3)
[2020-01-31] MEDS: INSULIN REGULAR 100 UNIT/ML SUBCUT SCH ×4 (08:03→21:29)
[2020-01-31] MEDS: MAGNESIUM HYDROXIDE SUSP 30 ML UDCUP PO PRN ×2 (08:52→17:14)
[2020-01-31] MEDS: LEVOTHYROXINE 100 MCG TABLET PO SCH (08:52)
[2020-01-31] MEDS: GABAPENTIN 300 MG CAPSULE PO SCH ×3 (08:52→21:26)
[2020-01-31] MEDS: DOCUSATE SODIUM 100 MG CAPSULE PO SCH ×2 (08:53→21:26)
[2020-01-31] MEDS: cilostazoL 100 MG TABLET PO SCH ×2 (08:53→21:27)
[2020-01-31] MEDS: ATROPINE 1 % OPH SOLN 5 ML BOTTLE RIGHT EYE SCH (08:53)
[2020-01-31] MEDS: carvediloL 3.125 MG TABLET PO SCH ×2 (08:53→21:26)
[2020-01-31] MEDS: CLOPIDOGREL 75 MG TABLET PO SCH (08:53)
[2020-01-31] MEDS: SPIRONOLACTONE 25 MG TABLET PO SCH (08:53)
[2020-01-31] MEDS: PANTOPRAZOLE 40 MG TABLET PO SCH (08:53)
[2020-01-31] MEDS: AMIODARONE 200 MG TABLET PO SCH (08:53)
[2020-01-31] MEDS: DIGOXIN 0.125 MG TABLET PO SCH (08:53)
[2020-01-31] MEDS: prednisoLONE ACETATE 1% OPH SUSP 5 ML BOTTLE RIGHT EYE SCH (08:54)
[2020-01-31] MEDS: ASPIRIN EC 81 MG TABLET PO SCH (09:00)
[2020-01-31] MEDS: TAMSULOSIN 0.4 MG CAPSULE PO SCH (21:26)
[2020-01-31] MEDS: SIMVASTATIN 10 MG TABLET PO SCH (21:27)
[2020-02-01 06:19] LABS: Basophils % 0.2 % (0.0-0.8); Eosinophils # 0.2 10*3/uL (0.0-0.87); Hematocrit 29.9 VOL% (42.0-52.0); Hemoglobin 10.4 GM/DL (14.0-18.0); Immature Granulocytes % 0.5 %; Immature Granulocytes Absolute 0.04 #; Lymphocytes # 1.4 10*3/uL (1.4-4.0); Lymphocytes % 16.6 % (21.2-54.2); Mean Corpuscular HGB Conc 34.8 GM/DL (32-36); Mean Corpuscular Volume 94.6 FL (87-102); Mean Platelet Volume 11.5 FL (9.6-12.0); Monocytes % 9.5 % (1.7-12.7); Neutrophils % 71.2 % (38.7-73.9); Platelet Count 125 T/CUMM (130-400); Red Blood Count 3.16 MC/CUMM (3.8-5.5); Red Cell Distribution Width 12.1 % (9.3-17.3); White Blood Count 8.4 T/CUMM (4-12)
[2020-02-01] MEDS: INSULIN REGULAR 100 UNIT/ML SUBCUT SCH ×2 (08:29→13:00)
[2020-02-01] MEDS: CLOPIDOGREL 75 MG TABLET PO SCH (09:25)
[2020-02-01] MEDS: ASPIRIN EC 81 MG TABLET PO SCH (09:25)
[2020-02-01] MEDS: DIGOXIN 0.125 MG TABLET PO SCH (09:25)
[2020-02-01] MEDS: DOCUSATE SODIUM 100 MG CAPSULE PO SCH (09:26)
[2020-02-01] MEDS: PANTOPRAZOLE 40 MG TABLET PO SCH (09:26)
[2020-02-01] MEDS: carvediloL 3.125 MG TABLET PO SCH (09:26)
[2020-02-01] MEDS: GABAPENTIN 300 MG CAPSULE PO SCH (09:27)
[2020-02-01] MEDS: cilostazoL 100 MG TABLET PO SCH (09:27)
[2020-02-01] MEDS: SPIRONOLACTONE 25 MG TABLET PO SCH (09:27)
[2020-02-01] MEDS: LEVOTHYROXINE 100 MCG TABLET PO SCH (09:27)
[2020-02-01] MEDS: ATROPINE 1 % OPH SOLN 5 ML BOTTLE RIGHT EYE SCH (10:34)
[2020-02-01] MEDS: prednisoLONE ACETATE 1% OPH SUSP 5 ML BOTTLE RIGHT EYE SCH (10:34)
[2020-02-01] MEDS: AMIODARONE 200 MG TABLET PO SCH (10:35)
[2020-02-01 12:34] VITALS: BP 106/54
== END 2020-02-01 14:15 | DRG 481 ==
LOC: SUATTDRO 14:14 → N.3E 14:14
PROVIDERS: ADMIT Internal Medicine; ATTEND Internal Medicine